=== PATIENT | male | born 1990 | race American Indian/Alaskan Native ===

== ENCOUNTER 2019-03-22 00:25 | Emergency (ER) | payer MEDICAID ==
[2019-03-22 00:34] VITALS: BP 113/59
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
[2019-03-22 01:56] LABS: Basophils % (Auto) 0.4 % (0.0-1.8); Eosinophils # (Auto) 0.1 K/mm3 (0.0-0.4); Eosinophils % (Auto) 1.4 % (0.0-4.3); Hematocrit 47.1 % (35.5-45.6); Lymphocytes # (Auto) 1.7 K/mm3 (1.2-5.4); Lymphocytes % (Auto) 27.3 % (13.4-35.0); Mean Corpuscular HGB Conc 34 % (32-34); Mean Corpuscular Volume 93 fl (84-94); Monocytes # (Auto) 0.7 K/mm3 (0.0-0.8); Monocytes % (Auto) 11.3 % (0.0-7.3); Platelet Count 200 K/mm3 (140-440); Red Blood Count 5.04 M/mm3 (3.65-5.03); Red Cell Distribution Width 13.9 % (13.2-15.2)
[2019-03-22 02:20] LABS: Alanine Aminotransferase 18 units/L (7-56); Albumin 4.8 g/dL (3.9-5); BUN/Creatinine Ratio 21; Blood Urea Nitrogen 19 mg/dL (9-20); Calcium 9.7 mg/dL (8.4-10.2); Hemolysis Index 14
[2019-03-22 03:10] LABS: Bilirubin,Urine NEG (Negative); Blood,Urine NEG (Negative); Color,Urine Yellow (Yellow); Mucus,Urine FEW /HPF; Protein,Urine <15 mg/dL mg/dL (Negative)
[2019-03-22 03:25] LABS: Amphetamine Screen,Urine PRESUMPTIVE NEGATIVE; Benzodiazepines Screen,Urine PRESUMPTIVE NEGATIVE; Methadone Screen,Urine PRESUMPTIVE NEGATIVE; Opiate Screen,Urine PRESUMPTIVE NEGATIVE
[2019-03-22 03:52] LABS: Cannabinoid Screen,Urine PRESUMPTIVE POSITIVE; Cocaine Screen,Urine PRESUMPTIVE POSITIVE
== END 2019-03-22 04:20 | disposition home or self-care (01) ==
LOC: ED 00:25
DX: F31.9 Bipolar disorder, unspecified (principal); F20.9 Schizophrenia, unspecified; F17.200 Nicotine dependence, unspecified, uncomplicated; F12.90 Cannabis use, unspecified, uncomplicated
CPT/HCPCS: 36415; 80053; 80307; 80320; 81001; 85025; 99284; G0480

== ENCOUNTER 2019-07-26 16:53 | Emergency (ER) | payer MEDICAID ==
--- NOTE | 2019-07-26 17:06 | Emergency Department Report ---
Stated Complaint: POSS STD EXPOSED Time Seen by Provider: 07/26/19 17:01 - HPI History of Present Illness: Pt complains of burning urination x 3 days He denies any penile discharge, hematuria, sores, joint pain/swelling - ROS Review of Systems: He denies fever, chill, or body aches denies chest pain or shortness of breath denies throat pain - Exam Physical Exam: Pt appears well and in no acute distress Normal heart rate Lungs are clear to auscultation bilaterally No joint pain, swelling, or erythema noted on exam MSE screening note: Focused history and physical exam performed. Due to findings the following was ordered: Pt presents with a non-medical emergency His exam is normal Pt given information for clinics to follow up with for further treatment and evaluation Also discussed strict return precautions in detail with pt who verbalized understanding ED Disposition for MSE Condition: Stable
== END 2019-07-26 17:05 | disposition left against medical advice (07) ==
LOC: ED 16:53
DX: R30.0 Dysuria (principal)
CPT/HCPCS: 99281

== ENCOUNTER 2021-06-01 12:48 | Emergency (ER) | payer MEDICAID ==
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
== END 2021-06-01 15:21 | disposition home or self-care (01) ==
LOC: ED 12:48
DX: S16.1XXA Strain of muscle, fascia and tendon at neck level, initial encounter (principal); S29.012A Strain of muscle and tendon of back wall of thorax, initial encounter; S39.012A Strain of muscle, fascia and tendon of lower back, initial encounter; Z76.0 Encounter for issue of repeat prescription; F31.9 Bipolar disorder, unspecified; F20.9 Schizophrenia, unspecified; Z79.899 Other long term (current) drug therapy; V87.7XXA Person injured in collision between other specified motor vehicles (traffic), initial encounter; Y93.89 Activity, other specified; Y92.488 Other paved roadways as the place of occurrence of the external cause; Y99.8 Other external cause status
CPT/HCPCS: 99281